=== PATIENT | female | born 1970 | race Caucasian/White ===

== ENCOUNTER → 2019-02-23 | Outpatient (CLI) | payer OTHER, SELFPAY ==
[2018-06-25 13:30] VITALS: BMI 24.7
[2019-02-23 14:14] LABS: Vitamin D,25 Hydroxy 25.1 ng/mL (29.95-100.01)
[2019-02-23 14:22] LABS: Anion Gap 9 (5-15); BUN 11 mg/dL (7-18); BUN/Creat Ratio 14.6 RATIO (10-20); Chloride 110 mmol/L (98-107); Cholesterol 165 mg/dL (200); Creatinine, Serum 0.76 mg/dL (0.55-1.02); EST Glomerular Filtration Rate 86 mL/min (>60); Est Glom Filt Rate - Afr Amer 104 mL/min (>60); Glucose 101 mg/dL (74-106); High Density Lipoprotein 55 mg/dL; Potassium 3.5 mmol/L (3.5-5.1); Sodium Level 140 mmol/L (136-145); Thyroid Stim Hormone (TSH) 1.98 uIU/mL (0.358-3.74); Triglycerides 65 mg/dL; Very Low Density Lipoprotein 13 mg/dL (5-40)
== END | disposition home or self-care (01) ==
LOC: MTLAB 11:41
PROVIDERS: Family Provider Family Medicine; PCP Family Medicine; Referring Provider Family Medicine; Visit Provider Family Medicine
DX: Z00.00 Encounter for general adult medical examination without abnormal findings (principal)
CPT/HCPCS: 36415; 80048; 80061; 82306; 84443

== ENCOUNTER → 2019-05-01 16:52 | Outpatient (CLI) | payer OTHER, SELFPAY ==
[2018-06-25 13:30] VITALS: BMI 24.7
--- NOTE | 2019-05-01 | FLU_PTH ---
PATIENT: MARTÍN JAIN LOC: [facility] U#:[id number] AGE/SX: 54/F ROOM: RE05/01/[address]: Dr. Mildred Araiza MD : 1970 BED: DIS: SPEC #: [id number] RECD: 05/01/19 16:49 STATUS: WILLARD REAntony #: [id number] AJAY: 05/01/19 00:[address]: Mildred Araiza DEPT: CYTOLOGY RECD BY: Maycol Jhaveri ENTERED: 05/03/19 16:53 SP TYPE: Fluid OTHR DR: Dr. Bravo Banuelos MD Tissues: Left breast, NOS Procedures: Special Stain Group II Surgery Specimen Level IV Cytospin Fluid HEADER OPERATION: Left breast cyst aspiration PRE-OP DIAGNOSIS: Left breast cyst TISSUE SUBMITTED: Left breast cyst aspiration for cytology DIAGNOSIS CYTOLOGY Left breast cyst, FNA (cytospin and cell block): Negative for malignant cells. Consistent with cyst contents. See cytology study and comment. SJ:jimi 05/05/19 COMMENT Correlation with clinical, radiologic findings and appropriate follow up are necessary. CYTOLOGY STUDY Slides are reviewed. The specimen entirely consists of macrophages. Ductal cells are not identified. CYTOLOGY GROSS Received is 40 ml of opaque cloudy fluid labeled with the patient's name and and designated per the requisition as left breast cyst. Submitted for cytology preparation including cell block. /CC:cc 05/03/19 TC:5 CPT: 05180, 92092
== END ==
PROVIDERS: Family Provider Family Medicine; PCP Family Medicine; Referring Provider Surgery; Visit Provider Surgery
DX: N60.02 Solitary cyst of left breast (principal)
CPT/HCPCS: 88108; 88305; 88313

== ENCOUNTER → 2019-05-22 11:54 | Outpatient (CLI) | payer OTHER, SELFPAY ==
[2018-06-25 13:30] VITALS: BMI 24.7
[2019-05-22 15:38] LABS: Basophil# 0.03 X10^3/uL; Basophil% 0.3 % (0-1); Eosinophil# 0.07 X10^3/uL; Eosinophils% 0.8 % (0-5); Hemoglobin 15.5 g/dL (12.0-15.0); Lymphocyte % 12.6 % (19-41); Mean Corpuscular Hgb 30.9 pg (27.0-32.0); Mean Corpuscular Volume 93.6 fL (81-99); Mean Platelet Vol. 9.6 fl (6.2-12.0); Monocyte% 5.7 % (0-10); NRBC Flagged by Analyzer 0 % (0-5); Neutrophil # 7.01 X10^3/uL (2.7-7.7); Neutrophil % 80.3 % (47-70); Platelet Count 350 K/mm3 (150-450); RBC Distribution Width SD 44.6 fl (35.1-43.9); Red Blood Count 5.02 M/mm3 (4.2-5.4); White Blood Count 8.7 K/mm3 (4.4-11.0)
[2019-05-22 16:03] LABS: Anion Gap 8 (5-15); BUN 12 mg/dL (7-18); BUN/Creat Ratio 17.3 RATIO (10-20); Calcium,Total 8.3 mg/dL (8.5-10.1); Chloride 109 mmol/L (98-107); Creatinine, Serum 0.69 mg/dL (0.55-1.02); EST Glomerular Filtration Rate 95 mL/min (>60); Est Glom Filt Rate - Afr Amer 115 mL/min (>60); Glucose 102 mg/dL (74-106); Sodium Level 139 mmol/L (136-145)
[2019-05-22 16:12] LABS: D-Dimer Quantitative (DVT/PE) < 0.27 FEU/ug/m (0.27-0.49)
== END ==
PROVIDERS: Family Provider Family Medicine; PCP Family Medicine; Referring Provider Family Medicine; Visit Provider Family Medicine
DX: R07.9 Chest pain, unspecified (principal)
CPT/HCPCS: 36415; 80048; 84484; 85025; 85379

== ENCOUNTER → 2019-12-09 15:09 | Outpatient (CLI) | payer BC, SELFPAY ==
[2018-06-25 13:30] VITALS: BMI 24.7
--- NOTE | 2019-12-09 15:13 | RAD_ITS ---
STUDY: X-RAY - CERVICAL SPINE REASON FOR EXAM: Female, 49 years old. Neck pain that goes into left side of neck and shoulder TECHNIQUE: 6 view(s) of the cervical spine were obtained. COMPARISON: None FINDINGS: Normal anterior atlantoaxial articulation. Normal odontoid process. There is reversal of the normal cervical lordosis. There is multi-level endplate spondylosis. There is multi-level degenerative disc disease with multilevel disc space narrowing, most pronounced at C5-C6 and C6-C7. Normal visualized intervertebral neuroforamina. The soft tissue structures are unremarkable. RAD/Cerv Spine 4 or 5 Views IMPRESSION: Multilevel degenerative changes. Electronically Signed: Maggie Nino MD at 15:47 EDT Tel , Service support ,
== END ==
PROVIDERS: PCP Family Medicine; Referring Provider Family Medicine; Visit Provider Family Medicine
DX: M54.2 Cervicalgia (principal)
CPT/HCPCS: 72050

== ENCOUNTER → 2020-07-13 15:16 | Outpatient (CLI) | payer BC, SELFPAY ==
[2018-06-25 13:30] VITALS: BMI 24.7
== END ==
PROVIDERS: PCP Family Medicine; Visit Provider Nurse Practitioner Adult Health
DX: U07.1 COVID-19 (principal)
CPT/HCPCS: 87635; U0003

== ENCOUNTER → 2020-08-10 09:12 | Outpatient (CLI) | payer OTHER, SELFPAY ==
[2018-06-25 13:30] VITALS: BMI 24.7
[2020-08-10 11:02] LABS: Vitamin D,25 Hydroxy 28.2 ng/mL
[2020-08-10 11:09] LABS: Anion Gap 7 (5-15); BUN 11 mg/dL (7-18); BUN/Creat Ratio 14.4 RATIO (10-20); Calcium,Total 8.5 mg/dL (8.5-10.1); Chloride 111 mmol/L (98-107); Creatinine, Serum 0.77 mg/dL (0.55-1.02); EST Glomerular Filtration Rate 84 mL/min (>60); Est Glom Filt Rate - Afr Amer 102 mL/min (>60); Glucose 85 mg/dL (74-106); Sodium Level 140 mmol/L (136-145)
== END ==
PROVIDERS: PCP Family Medicine; Referring Provider Family Medicine; Visit Provider Family Medicine
DX: Z00.00 Encounter for general adult medical examination without abnormal findings (principal)
CPT/HCPCS: 36415; 80048; 82306

== ENCOUNTER → 2021-05-19 09:13 | Outpatient (CLI) | payer BC, SELFPAY ==
[2021-05-19 12:51] LABS: ALB/GLOB Ratio 1.2 RATIO (0.9-2.4); AST(SGOT) 14 U/L (15-37); Alanine Aminotransfer ALT/SGPT 26 U/L (13-56); Albumin, Serum 3.8 g/dL (3.2-5.0); Alkaline Phosphatase 78 U/L (45-117); Anion Gap 7 (5-15); BUN 15 mg/dL (7-18); BUN/Creat Ratio 18.7 RATIO (10-20); Calcium,Total 8.9 mg/dL (8.5-10.1); Chloride 108 mmol/L (98-107); Cholesterol 105 mg/dL (200); EST Glomerular Filtration Rate 80 mL/min (>60); Est Glom Filt Rate - Afr Amer 97 mL/min (>60); Globulin 3.2 g/dL (2.2-4.2); Glucose 89 mg/dL (74-106); High Density Lipoprotein 49 mg/dL; Sodium Level 139 mmol/L (136-145); Triglycerides 60 mg/dL; Very Low Density Lipoprotein 12 mg/dL (5-40)
== END ==
PROVIDERS: PCP Family Medicine; Referring Provider Family Medicine; Visit Provider Family Medicine
DX: E78.5 Hyperlipidemia, unspecified (principal)
CPT/HCPCS: 36415; 80053; 80061